=== PATIENT | female | born 1955 | race Caucasian/White ===

== ENCOUNTER → 2019-10-26 10:00 | Outpatient (CLI) | payer BC | END | disposition home or self-care (01) | LOC: D.MAMMO 10:00 | PROVIDERS: ATTEND Family Medicine | DX: Z12.31 Encounter for screening mammogram for malignant neoplasm of breast (principal) ==

== ENCOUNTER 2020-03-26 05:58 | Day surgery (SDC) | payer BC ==
[2020-03-24 15:40] LABS: ALBUMIN 3.9 g/dL (3.4-5.0); ANION GAP 7.9 mmol/L (8-16); BILIRUBIN - TOTAL 0.59 mg/dL (0.2-1.3); CALCIUM 8.7 mg/dL (8.5-10.1); CARBON DIOXIDE 31.2 mmol/L (21.0-32.0); CREATININE - SERUM 1.1 mg/dL (0.6-1.3); POTASSIUM - SERUM 4.1 mmol/L (3.5-5.1); PROTEIN - SERUM 7.6 g/dL (6.4-8.2)
[2020-03-24 15:45] LABS: BASOPHILS 1.1 % (0-2); EOSINOPHILS 4.7 % (0-7); HEMATOCRIT 43.7 % (36.0-48.0); HEMOGLOBIN 14.7 g/dL (12-16); IMMATURE GRANULOCYTES 0.1 % (0-5); LYMPHOCYTES 34.2 % (15-50); MCH 30.6 pg (26.0-34.0); MCHC 33.6 g/dL (31.0-37.0); MEAN PLATELET VOLUME 10.6 fL (7.4-10.4); MONOCYTES 9.3 % (2-11); NEUTROPHILS 50.6 % (40-80); PLATELET COUNT 256 10x3/uL (130-400); RDW 13.1 % (11.5-14.5); WBC 7.2 10x3/uL (4.8-10.8)
[~2020-03-26] VITALS: Ht 165.1 cm; Wt 104.3 kg
--- NOTE | ~2020-03-26 | OP ---
PATIENT NAME: XAVIER LÓPEZ MEDICAL RECORD: [id number] LOCATION:[facility] ADMISSION DATE: SURGEON: MIKE ARRIAGA DO DATE OF OPERATION: 03/26/2020 PREOPERATIVE DIAGNOSIS: Postmenopausal bleeding. POSTOPERATIVE DIAGNOSES: 1. Postmenopausal bleeding. 2. Endometrial polyp. PRIMARY SURGEON: Mike Arriaga DO ANESTHESIA: General ET tube. PROCEDURE: Hysteroscopy, dilation and curettage, and endometrial polypectomy. FINDINGS: Normal appearing external genitalia. Vaginal vault with anterior prolapse. Normal appearing cervix. Uterus sounded to 6 cm. Normal appearing bilateral fallopian tube ostia. Uterus with small endometrial polyp, otherwise grossly normal. SPECIMENS: Endometrial polyp and endometrial curettings. ESTIMATED BLOOD LOSS: 5 cc. IV FLUIDS: 1300 cc. URINE OUTPUT: 100 cc clear urine. COMPLICATIONS: None. CONDITION: Stable. PROCEDURE IN DETAIL: The risks, benefits, alternatives and indications of the procedure were discussed with the patient. She voiced understanding of the procedure and signed the consent. She was taken to the OR where general anesthesia was administered and found to be adequate. She was placed in the dorsal lithotomy position. She was prepped and draped in the normal sterile fashion. The pessary was removed from the vagina. A speculum was placed into the posterior aspect of the vagina and a single tooth tenaculum was used to grasp the anterior lip of the cervix. The uterus was sounded to 6 cm. The cervix was further dilated to accommodate the hysteroscope. The hysteroscope was then inserted into the uterus and the uterus was grossly normal with normal bilateral fallopian tube ostia aside from a small endometrial polyp. In the posterior portion of the left side of the uterus, a polypectomy was performed with polyp forceps and the polyp portion of the polyp was sent to pathology. The hysteroscope was removed from the uterus and the cervix was further dilated to accommodate a curette. A gentle sharp curettage was then performed with endometrial curetting sent to pathology. All instruments were removed from the vagina and good hemostasis was noted at the tenaculum site. The pessary was cleaned with Betadine and were placed into the vagina. All lap sponge and instrument counts were correct times 2. The patient tolerated the procedure well and she was awakened and taken to the recovery room in stable condition. 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 03/26/20 [place] [id number] [place] [id number]
[2020-03-26] MEDS ORDERED: INDERAL 40 MG T40 MG PO (07:07)
[2020-03-26] MEDS ORDERED: TRAZODONE HCL150 MG PO (07:07)
[2020-03-26] MEDS ORDERED: OMEPRAZOLE40 MG PO (07:08)
[2020-03-26] MEDS ORDERED: METHOCARBAMOL500 MG PO (07:09)
[2020-03-26] MEDS ORDERED: COREG25 MG PO (07:09)
[2020-03-26] MEDS ORDERED: IMVEXXY (07:10)
[2020-03-26] MEDS ORDERED: KLONOPIN1 MG PO (07:10)
[2020-03-26 07:12] VITALS: BP 154/89; Ht 165.1 cm; Wt 104.3 kg
== END 2020-03-26 11:20 | disposition home or self-care (01) ==
LOC: D.OPS 05:58 → D.PAN 07:00 → D.OPS 07:20
PROVIDERS: Anesthesiology; ATTEND Student in an Organized Health Care Education/Training Program
DX: N84.0 Polyp of corpus uteri (principal); N95.0 Postmenopausal bleeding; I10 Essential (primary) hypertension; K21.9 Gastro-esophageal reflux disease without esophagitis; N81.10 Cystocele, unspecified